=== PATIENT | male | born 1990 | race Caucasian/White ===

== ENCOUNTER 2023-09-28 12:32 | Emergency (ER) | payer OTHER, SELFPAY ==
[2023-09-28 12:32] VITALS: BP 164/101; PULSE 127; RESP 20; TEMP 36; O2SAT 97; BMI 46.4
--- NOTE | 2023-09-28 14:05 | ED.VIS.BACK ---
HPI History of Present Illness Chief Complaint: Back Informant: patient Onset/Context/Timing Onset: Today Context: Sudden Onset Injury: lifting and repetitive motion Timing: Continuous Quality: - (Tightness, spasm) Location: Lumbar Worsened by: improves with Movement Relieved by: Nothing Associated Symptoms Associated Symptoms: Negative for Numbness, Tingling, Radiation to Right Leg, Radiation to Left Leg, Fever, Abdominal Pain, Dysuria, Unable to Ambulate, Unable to Transfer, Urinary Retention, Urinary Incontinence, Constipation or Fecal Incontinence Narrative Narrative: Patient presents with back pain that began today while he was at work. Patient states he was using a pry bar to try and separate blocks of concrete while other people were pulling on them. Patient states that pain is mainly in his lower lumbar area. Patient describes it as tightness and spasm. Patient denies any radiation of the pain. Patient denies any bowel or bladder changes. Patient denies any saddle anesthesia. Patient denies any direct trauma or injury. 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 PFSH PFSH Medical History no medical history no medical history Allergy/AdvReac Type Severity Reaction Status Date / Time No Known Allergies Allergy Verified 09/28/23 14:24 Family History no significant family his Surgical History no surgical history no surgical history ROS ROS ED Constitutional Constitutional ED: Denies chills or fever(s) Eyes Eyes: Denies blurry vision or change in vision ENT ENT ED: Denies rhinorrhea or sore throat Cardiovascular Cardiovascular: Denies chest pain or palpitations Respiratory/Chest Respiratory/Chest: Denies cough or dyspnea Gastrointestinal Gastrointestinal: Denies nausea or vomiting Genitourinary Genitourinary ED: Denies dysuria or hematuria Musculoskeletal Musculoskeletal: Reports back pain; Denies neck pain Integumentary Denies abscess or rash Neurologic Neurologic: Denies headache(s) or weakness Allergic/Immunologic Allergic/Immunologic ED: Denies mouth swelling or urticaria EXAM Physical Exam Const Vital Signs: 09/28/23 12:32 Temperature 96.8 F L Temperature Source Temporal Pulse Rate 127 H Respiratory Rate 20 H Blood Pressure 164/101 H Blood Pressure Mean 122 Pulse Ox 97 Oxygen Delivery Method Room Air Positive well nourished, well developed and obese General Appearance ED: well developed and NAD Nutritional Appearance: obese HEENT Reports moist mucous membranes Neck supple and no JVD Back/Spine Back/Spine Narrative: There is tenderness to palpation over the lower lumbar spine and paraspinal muscles. Range of motion was limited in all motions of the lumbar spine secondary to pain. There is no edema or ecchymosis. There is no bony crepitance or step-off noted. Strength is 5/5 bilaterally in the lower extremities. There are no sensory deficits noted. Deep tendon reflexes are 2/4 bilaterally in the lower extremities. Lumbar Spine / Lower Back: ROM limited and straight leg raise negative bilaterally Extremity normal to inspection General Extremety ED: Negative for edema or tenderness General Extremity: Negative for edema Neuro oriented x3 and no sensory deficits noted Sensorium / Orientation: alert Motor Exam: strength 5/5 throughout Deep Tendon Reflexes: Rt Patellar (L4): 2+, Lt Patellar (L4): 2+, Rt Ankle (S1): 2+ and Lt Ankle (S1): 2+ Deep Tendon Reflexes Back: Rt Patellar (L4): 2+, Lt Patellar (L4): 2+, Rt Ankle (S1): 2+ and Lt Ankle (S1): 2+ Psych mental status grossly normal MDM MDM MDM Narrative Medical decision making narrative: Patient was advised that this is most likely a lumbosacral strain. Patient is agreeable that x-rays are not necessary at this time. Patient was given prescriptions for Naprosyn and Flexeril. Patient was instructed use ice to the area. Patient was given restrictions for work. Patient was instructed to follow-up with his primary care physician or the [facility] in 5 to 7 days. Patient understood and was agreeable with the plan. All questions were answered. Discharge Plan Triage Chief Complaint: Back ED Provider: Michael Dyson Dx/Rx/DC Orders Clinical Impression: Acute lumbosacral myofascial strain, Arthritis of lumbar spine Instructions: ED Back Spasm, No Trauma Stand Alone Forms: Work Status Form Primary Care Provider: Remi Galloway Referrals: [facility] [Non-Staff] - 5-7 Days Disposition Disposition: Home, Self Care
[2023-09-28] MEDS: Naproxen 250 MG Tablet 500 MG PO (14:30)
[2023-09-28] MEDS: cycloBENZAPRine HCl 10 MG Tablet PO (14:31)
== END 2023-09-28 14:41 | disposition home or self-care (01) ==
PROVIDERS: Emergency Provider Emergency Medicine; PCP Family Medicine; Visit Provider Emergency Medicine
DX: S39.012A Strain of muscle, fascia and tendon of lower back, initial encounter (principal); M47.817 Spondylosis without myelopathy or radiculopathy, lumbosacral region; M47.816 Spondylosis without myelopathy or radiculopathy, lumbar region; E66.9 Obesity, unspecified; X50.9XXA Other and unspecified overexertion or strenuous movements or postures, initial encounter; Y99.0 Civilian activity done for income or pay; Y92.89 Other specified places as the place of occurrence of the external cause
CPT/HCPCS: 99282

== ENCOUNTER 2024-04-13 07:10 | Emergency (ER) | payer OTHER, SELFPAY ==
[2024-04-13 07:12] VITALS: BP 154/100; PULSE 98; RESP 16; TEMP 36.6; O2SAT 99; BMI 46.0
--- NOTE | 2024-04-13 07:23 | EKG12_ITS ---
Test Reason : CHEST PRESSURE Blood Pressure : / mmHG Vent. Rate : 091 BPM Atrial Rate : 091 BPM P-R Int : 160 ms QRS Dur : 078 ms QT Int : 326 ms P-R-T Axes : 017 015 001 degrees QTc Int : 400 ms Normal sinus rhythm Normal ECG Confirmed by Abran Gutierrez ([id number]), scientific editor ROBERT HUNTER ([id number]) on 04/17/2024 9:24:45 AM Referred By: Confirmed By:Abran Gutierrez
--- NOTE | 2024-04-13 07:24 | EX.ED.DYSGE1 ---
HPI History of Present Illness Chief Complaint: Chest Pain Detail of Chief Complaint: Intermittent chest pain past couple of days Informant: patient Onset/Context/Timing Onset: Today, Yesterday and Days (2 days ago as well) Context: Sudden Onset Timing: Intermittent and Lasts (5 seconds) Quality: Sharp Location: Left chest Current Severity: Gone Maximum Severity: Moderate Worsened by: Nothing Relieved by: Nothing Associated Symptoms Associated Symptoms: Feels a sense of weakness and being drained Narrative Narrative: Patient is a 33-year-old male. His only cardiac risk factor is to family. When asked what type of problems he mention valvular. There are for members of had heart attacks. He believes there was some less than 55. He is a non-smoker for the past several years. He is on no medicine other than vitamin D. Today's episode occurred while driving his daughter to school. Afterwards he felt drained. It was a sharp left-sided chest pain that lasted seconds. Yesterday had multiple episodes that lasted seconds. He had pain in his left chest that went up to his head and down his left upper extremity and left lower extremity. The episodes that occurred yesterday while at rest. The day before he was doing things on the roadside. Again short duration sharp pain. No associated symptoms. Patient is concerned this is his heart because of family risk factors . Patient denies history of fever, chills night sweats. Patient has rhinorrhea, congestion postnasal drip and sore throat. Patient denies GI symptoms. Patient denies paresthesia, anesthesia or motor weakness. There is no history of VTE. He has no risk factors for VTE. Prior similar symptoms: No Recent Illness/Hospitalization: No PFSH PFSH Medical History no medical history no medical history Allergy/AdvReac Type Severity Reaction Status Date / Time No Known Allergies Allergy Verified 04/13/24 07:11 Social History (Updated 04/13/24 @ 07:[address] Pako Galloway MD) household members: children Smoking Status: Former smoker ROS ROS ED Constitutional Constitutional ED: Denies chills, fever(s), subjective, sweats or weight loss Eyes Eyes: Denies blurry vision or change in vision ENT ENT ED: Denies ear pain, rhinorrhea or sore throat Cardiovascular Cardiovascular: Reports chest pain; Denies orthopnea, palpitations, paroxysmal nocturnal dyspnea or racing heartbeat Respiratory/Chest Respiratory/Chest: Denies cough, dyspnea, dyspnea on exertion, orthopnea or paroxysmal nocturnal dyspnea Gastrointestinal Gastrointestinal: Denies abdominal pain, nausea or vomiting Musculoskeletal Musculoskeletal: Denies arthralgias, back pain, myalgias or neck pain Integumentary Denies rash Neurologic Neurologic: Reports paresthesias, weakness and other Details: Patient reported paresthesias in his hands and feet 2 days ago. This preceded the chest discomfort. ; Denies headache(s) Endocrine Endocrinology: Denies cold intolerance or heat intolerance Hematologic/Lymphatic Hematologic/Lymphatic: Reports systems reviewed and no addt'l complaints, except as documented EXAM Physical Exam Const Vital Signs: 04/13/24 07:11 04/13/24 07:12 Temperature 97.9 F Temperature Source Temporal Pulse Rate 98 Respiratory Rate 16 Respiratory Effort Normal Non-Labored Blood Pressure 154/100 H Blood Pressure Mean 118 Pulse Ox 99 Oxygen Delivery Method Room Air Positive well nourished and well developed General Appearance ED: well developed and NAD; Negative for cyanotic, diaphoretic or pallor HEENT Reports moist mucous membranes HEENT Narrative: Has atraumatic normocephalic. Ears normal. Nares patent. Eyes PERRL and EOMs intact bilaterally Eyes Narrative: Patient does wear glasses. General Eye ED: Negative for pale conjunctiva or scleral icterus Neck no lymphadenopathy, supple and no JVD Chest Wall inspection of chest normal and palpation of chest normal Resp normal respiratory effort and clear to auscultation bilaterally Cardio regular rate, regular rhythm, S1 normal heart sound, S2 normal heart sound and no murmurs GI normal to inspection, nondistended, normoactive bowel sounds, non-tender and non-distended; Negative for hepatosplenomegaly Extremity Extremity Narrative: There is no swelling, asymmetry, discoloration, leg pain distention, palpable cords tenderness on the distribution of the deep venous system. General Extremety ED: Negative for edema General Extremity: Negative for edema Neuro oriented x3 and CN's II-XII intact bilaterally Sensorium / Orientation: alert Psych mental status grossly normal Skin no rashes or lesions noted and no wounds General Skin Exam: Negative for jaundice or pallor MDM MDM MDM Narrative Medical decision making narrative: Patient was informed that his chest pain is not cardiac. Patient is concerned because of family history . Will obtain BMP to assess for electrolyte abnormality since has been working outside to make sure he is not hypernatremic has no abnormality in renal function. CBC to assess for anemia and leukocytosis. 1 troponin was obtained. EKG was obtained which was normal. Patient's blood pressure did improve. Patient states he was anxious when he arrived. There is no evidence of endorgan dysfunction. Lab Data Attestation: I reviewed the patient's lab results. Lab results narrative: CBC is normal. Basic metabolic panel is remarkable for slight elevation glucose of 111. Troponin is normal with days of transient pain. Labs: Laboratory Results - last 24 hr 04/13/24 08:00 WBC 5.4 RBC 5.27 Hgb 15.3 Hct 43.5 MCV 82.5 MCH 29.0 MCHC 35.2 RDW Std Deviation 36.7 RDW Coeff of Pratibha 12.3 Plt Count 173 MPV 10.0 Immature Gran % (Auto) 1.300 H Neut % (Auto) 68.6 Lymph % (Auto) 20.4 [place] % (Auto) 7.6 Eos % (Auto) 1.5 Baso % (Auto) 0.6 Absolute Neuts (auto) 3.7 Absolute Lymphs (auto) 1.10 Nucleated RBC % 0 Sodium 140 Potassium 4.2 Chloride 107 Carbon Dioxide 24.0 Anion Gap 9 BUN 17 Creatinine 0.91 Estim Creat Clear Calc 155.19 Est GFR (MDRD) Af Amer 122 Est GFR (MDRD) Non-Af 101 BUN/Creatinine Ratio 18.6 Glucose 111 H Calcium 9.4 Troponin I High Sens 10 EKG Initial EKG: Attestation: I personally reviewed and interpreted this EKG as follows: Interpretation: Sinus Rhythm (Rate is 91 and the EKG is normal. Par[place] 160 ms. QT the patient is 70 ms. QT duration is 3 and 26 ms. [place] is normal.) Differential Diagnosis Chest pain/SOB: pulmonary embolism Reason(s) PE less likely: Positive for PERC negative, Well's <3, not tachycardic and not hypoxic, ACS ACS: Positive for no evidence of ACS based on cardiac biomarkers, EKG without ischemia and history not suggestive of ischemia pain, pneumothorax Reason(s) pneumothorax less likely: Positive for bilateral breath sounds and Other, pneumonia Reason(s) pneumonia less likely: Positive for no elevation in WBC count, no noted fever and symptoms not consistent with acute infection and aortic dissection Reason(s) Aortic dissection less likely:: Positive for normal vascular exam, no history of HTN, normal neurological exam, no significant risk factors for dissection, pain not sudden onset, no ripping/tearing pain, no pain to back and blood pressure appropriate in ED Treatment and Re-Evaluation :: Patient was informed of his results. Patient was informed that I am uncertain the exact cause of his pain. I informed him that the significant things I need to look for there is no evidence of and therefore will discharge unless he has questions or any else that can be done. Discharge Plan Triage Chief Complaint: Chest Pain ED Provider: Pako Galloway Dx/Rx/DC Orders Clinical Impression: Intermittent left-sided chest pain, Elevated blood-pressure reading without diagnosis of hypertension, Paresthesia Instructions: ED Chest Pain, Noncardiac, ED Chest Pain, Uncertain Cause, ED Hypertension, To Be Confirmed Primary Care Provider: Remi Galloway Referrals: Remi Galloway MD [Primary Care Provider] - 1-2 Weeks Print Language: Kiswahili Disposition Disposition: Home, Self Care
[2024-04-13 08:11] LABS: Absolute Neutrophil Count 3.7 X10^3/uL (2.0-7.7); Basophil# 0.03 X10^3/uL; Basophil% 0.6 % (0-1); Eosinophil# 0.08 X10^3/uL; Eosinophils% 1.5 % (0-5); Hematocrit 43.5 % (40-54); Hemoglobin 15.3 g/dL (13.0-16.5); Lymphocyte % 20.4 % (19-41); Mean Corp Hgb Conc 35.2 g/dL (32-36); Mean Corpuscular Volume 82.5 fL (80-94); Monocyte# 0.41 X10^3/uL; Monocyte% 7.6 % (0-10); NRBC Flagged by Analyzer 0 % (0-5); Neutrophil % 68.6 % (47-70); Platelet Count 173 K/mm3 (150-450); RBC Distribution Width CV 12.3 % (11.6-14.6); RBC Distribution Width SD 36.7 fl (35.1-43.9); Red Blood Count 5.27 M/mm3 (4.6-6.2); White Blood Count 5.4 K/mm3 (4.4-11.0)
[2024-04-13 08:26] LABS: Anion Gap 9 (5-15); BUN 17 mg/dL (7-18); BUN/Creat Ratio 18.6 RATIO (10-20); Calcium,Total 9.4 mg/dL (8.5-10.1); Chloride 107 mmol/L (98-107); Creatinine, Serum 0.91 mg/dL (0.70-1.30); EST Glomerular Filtration Rate 101 mL/min (>60); Est Glom Filt Rate - Afr Amer 122 mL/min (>60); Estimated Creatinine Clearance 155.19 ml/min; Glucose 111 mg/dL (74-106); Potassium 4.2 mmol/L (3.5-5.1); Sodium Level 140 mmol/L (136-145); Troponin-I HS 10 pg/mL (3.0-78.0)
[2024-04-13 09:11] VITALS: BP 134/93; PULSE 86; RESP 18; O2SAT 95
[2024-04-13 09:40] VITALS: BP 134/93; PULSE 86; RESP 18; TEMP 36.4; O2SAT 95
== END 2024-04-13 09:42 | disposition home or self-care (01) ==
PROVIDERS: Emergency Provider Emergency Medicine; PCP Family Medicine; Visit Provider Emergency Medicine
DX: R07.9 Chest pain, unspecified (principal); R03.0 Elevated blood-pressure reading, without diagnosis of hypertension; R20.2 Paresthesia of skin; Z87.891 Personal history of nicotine dependence
CPT/HCPCS: 80048; 84484; 85025; 93005; 99284; A4216